=== PATIENT | female | born 1960 | race Caucasian/White ===

== ENCOUNTER → 2016-06-08 | Outpatient (CLI) | payer BC ==
[~2016-06-08] MED LIST: DOCU100C PO; FENO145T26 PO; IBUP-1050 PO; LEVO75TA5 PO; NXM/40 PO; PRM625 PO; SIMV40TA2 PO
--- NOTE | 2016-06-08 17:53 | DIAGNOSTIC IMAGING REPORT ---
CHEST 2 VIEWS ROUTINE HISTORY: Short of breath. COMPARISON: None. FINDINGS: No focal lung consolidations. The heart is normal in size. No pleural effusions. No pneumothorax. Punctate calcified granuloma within the right midlung zone. The lungs are mildly hyperexpanded with mild apical predominant emphysematous changes. IMPRESSION: No acute process within the chest. Mild emphysema. Electronically signed by: Efrain Pal M.D. 06/08/2016 5:51 PM
== END | disposition home or self-care (01) ==
LOC: C.RAD 17:23
PROVIDERS: ATTEND Internal Medicine
DX: Z87.891 Personal history of nicotine dependence (principal); R06.02 Shortness of breath

== ENCOUNTER → 2016-06-10 | Outpatient (CLI) | payer BC ==
[2016-06-10 14:37] LABS: BASO % 0.6 %; BASO ABS # 0.03 K/uL (0-0.2); COMPLETE YES; HEMATOCRIT 40.6 % (37-47); LYMPH % 36.6 %; LYMPH ABS # 1.96 K/uL (1.2-3.4); MEAN CELL VOLUME 89.8 fL (80-100); MEAN CORPUSCULAR HEMOGLOBIN 29.6 pg (25-34); MEAN PLATELET VOLUME 10.5 fL (7.4-10.4); MONO % 10.1 %; NEUT % 49.7 %; PLATELET COUNT 371 K/uL (130-400); RED BLOOD COUNT 4.52 M/uL (4.2-5.4); WHITE BLOOD COUNT 5.36 K/uL (4.8-10.8)
[2016-06-10 15:06] LABS: ALT/SGPT 18 U/L (12-78); AMYLASE 31 U/L (25-115); BLOOD UREA NITROGEN 13 mg/dl (7-18); BUN/CREATININE RATIO 19.5 (10-20); C-REACTIVE PROTEIN 1.23 mg/dl (0-0.29); CALCIUM 9.5 mg/dl (8.5-10.1); CARBON DIOXIDE 25 mmol/L (21-32); CHLORIDE 106 mmol/L (98-107); CREATININE 0.66 mg/dl (0.60-1.20); GLUCOSE 74 mg/dl (70-99); SODIUM 141 mmol/L (136-145)
[2016-06-10 15:09] LABS: ALB/GLOB RATIO 1.2 (0.9-2); ALKALINE PHOSPHATASE 44 U/L (45-117); AST/SGOT 16 U/L (15-37)
[2016-06-15 17:32] LABS: IGA SERUM 147 mg/dL (81-463); TIS TRANS IGA 1 U/mL (<4)
== END | disposition home or self-care (01) ==
LOC: C.LAB 13:38
PROVIDERS: ATTEND Internal Medicine
DX: R63.4 Abnormal weight loss (principal); R10.9 Unspecified abdominal pain

== ENCOUNTER → 2016-06-11 | Day surgery (SDC) | payer BC ==
[2016-06-10 13:34] VITALS: Ht 162.6 cm; Wt 54.1 kg
[~2016-06-11] VITALS: Ht 162.6 cm; Wt 54.1 kg
[~2016-06-11] MED LIST changes: +LIDOCAINE HCL 2% 2 ML VIAL (20MG/ML) ONE; +PROPOFOL IV EMULSION 10 MG/ML 20 ML VIAL IV ONE; +SODIUM CHLORIDE 0.9% 500ML 500 ML IV ONE
--- NOTE | 2016-06-11 12:31 | Endo History and Physical ---
History & Physical Date of Service: Jun 11, 2016. Chief Complaint: Weight loss, abnomal pain Referring Physician: Jose Roberto History of Present Illness 55 yo CF who presents for EGD and Colonoscopy secondary to weight loss and abdominal pain. Past Surgical History Hx Cardiac Surgery: No Hx Internal Defibrillator: No Hx Pacemaker: No Hx Abdominal Surgery: Yes (TUBAL,HYSTERECTOMY) Hx of Implantable Prosthesis: No Hx Post-Op Nausea and Vomiting: No Hx Cancer Surgery: No Hx Thoracic Surgery: No Hx Orthopedic: No Hx Urinary Tract Surgery: No Family History None Social History Smoking Status: Current Every Day Smoker Hx Substance Use: No Hx Alcohol Use: Yes (OCC SOCIAL) Allergies Coded Allergies: No Known Allergies (Unverified , 06/10/16) Current Medications Reported Home Medications Medications Dose Route/Sig Max Daily Dose Days Date Category Advil (Ibuprofen) 200 Mg Tab 400 Mg PO PRN 06/10/16 Reported Stool Softener (Docusate Sodium) 100 Mg Cap 100 Mg PO BID 06/10/16 Reported Zocor (Simvastatin) 40 Mg Tab 40 Mg PO QPM 06/10/16 Reported Tricor (Fenofibrate) 145 Mg Tab 145 Mg PO QAM 06/10/16 Reported Premarin (Estrogens Conjugated) 0.625 Mg Tab 0.625 Mg PO QAM 06/10/16 Reported Nexium (Esomeprazole Magnesium) 40 Mg Capcr 40 Mg PO QAM 06/10/16 Reported Levothyroxine Sodium 75 Mcg Tab 1 Tab PO QAM 90 06/10/16 Reported Vital Signs Weight (Kilograms): 54.09 Height (Feet): 5 Height (Inches): 4 Date Time Temp Pulse Resp B/P Pulse Ox O2 Delivery O2 Flow Rate FiO2 06/11/16 12:04 36.9 73 18 103/62 96 Room Air Physical Exam General Appearance: WD/WN, no apparent distress Respiratory/Chest: Auscultation: breath sounds normal Cardiovascular: Heart Auscultation: RRR Abdomen: Bowel Sounds: normal Inspection & Palpation: soft, non-distended, no tenderness, guarding & rebound Assessment and Plan Assessment: 55 yo CF who presents for EGD and Colonoscopy secondary to weight loss and abdominal pain. Plan: Proceed with EGD and colonoscopy.
--- NOTE | 2016-06-11 13:38 | Discharge Instructions ---
Endoscopy Patient Instructions Date / Procedure(s) Performed Jun 11, 2016. Colonoscopy, EGD Allergy Information Coded Allergies: No Known Allergies (Unverified , 06/10/16) Discharge Date / Findings Jun 11, 2016. EGD: Duodenitis with biopsies, Gastritis with biopsies Colonoscopy: Terminal ileitis s/p biopsies, Cecal polyp, Non-specific sigmoid colitis Medication Instructions OK to resume all medications today as prescribed Reported Home Medications Medications Dose Route/Sig Max Daily Dose Days Date Category Advil (Ibuprofen) 200 Mg Tab 400 Mg PO PRN 06/10/16 Reported Stool Softener (Docusate Sodium) 100 Mg Cap 100 Mg PO BID 06/10/16 Reported Zocor (Simvastatin) 40 Mg Tab 40 Mg PO QPM 06/10/16 Reported Tricor (Fenofibrate) 145 Mg Tab 145 Mg PO QAM 06/10/16 Reported Premarin (Estrogens Conjugated) 0.625 Mg Tab 0.625 Mg PO QAM 06/10/16 Reported Nexium (Esomeprazole Magnesium) 40 Mg Capcr 40 Mg PO QAM 06/10/16 Reported Levothyroxine Sodium 75 Mcg Tab 1 Tab PO QAM 90 06/10/16 Reported Provider Instructions Activity Restrictions - No exercising or heavy lifting for 24 hours. - Do not drink alcohol the day of the procedure. - Do not drive a car or operate machinery until the day after the procedure. - Do not make any important decisions or sign important papers in 24 hours after the procedure. Following Day: - Return to full activity which may include returning to work/school. Diet Start your diet with liquids and light foods (jello, soup, juice, toast). Then eat your usual diet if not nauseated. Treatment For Common After Affects For mild abdominal pain, bloating, or excessive gas: - Rest - Eat lightly - Lie on right side Follow-Up Information Follow-up with Jose Roberto as scheduled Anesthesia Information What You Should Know You have had a procedure that required some medicine to reduce anxiety and discomfort. This treatment is called moderate sedation. After receiving the treatment, you may be sleepy, but you will be able to breathe on your own. The effects of the treatment may last for several hours. Follow these instructions along with Activity/Diet recommendations noted above: * Do NOT do anything where dizziness or clumsiness would be dangerous. * Rest quietly at home today, then you can be up and about tomorrow. * Have a responsible person stay with you the rest of today. * You may have had an I.V. today. If so, you may take the dressing off later today. Recommendations Call your doctor if: * Trouble breathing * Continuous vomiting for more than 24 hours * Temperature above 101 degrees * Severe abdominal pain or bloating * Pain not relieved by pain medicine ordered * There is increased drainage or redness from any incision * A large amount of rectal bleeding greater than 2-3 tablespoons. (If you had a polyp/s removed or have hemorrhoids, a small amount of blood - from the rectum is to be expected.) * You have any unanswered questions or concerns. IN THE EVENT OF A SERIOUS EMERGENCY, GO TO THE NEAREST EMERGENCY ROOM Your discharge instructions were prepared by provider Russell Guzmán. Patient Instructions Signature Page Nabila Henson Patient (or Guardian) Signature/Date: I have read and understand the instructions given to me by my caregivers. Caregiver/RN/Doctor Signature/Date: The above-named patient and/or guardian has received patient instructions on this date. + Original Patient Signature Page (only) stays with chart. Please make copy for patient.
--- NOTE | 2016-06-11 13:47 | GI REPORT ---
Procedure Date: 06/11/2016 12:45 PM Procedure: Upper GI endoscopy Indications: Epigastric abdominal pain, Weight loss Medicines: Monitored Anesthesia Care Complications: No immediate complications. Estimated Blood Loss: Estimated blood loss: none. Procedure: Pre-Anesthesia Assessment: - Prior to the procedure, a History and Physical was performed, and patient medications and allergies were reviewed. The patient's tolerance of previous anesthesia was also reviewed. The risks and benefits of the procedure and the sedation options and risks were discussed with the patient. All questions were answered, and informed consent was obtained. Prior Anticoagulants: The patient has taken no previous anticoagulant or antiplatelet agents. ASA Grade Assessment: II - A patient with mild systemic disease. After reviewing the risks and benefits, the patient was deemed in satisfactory condition to undergo the procedure. After obtaining informed consent, the endoscope was passed under direct vision. Throughout the procedure, the patient's blood pressure, pulse, and oxygen saturations were monitored continuously. The scope was introduced through the mouth, and advanced to the second part of duodenum. The upper GI endoscopy was accomplished without difficulty. The patient tolerated the procedure well. Findings: The examined esophagus was normal. Localized mild inflammation characterized by erythema was found in the gastric antrum. Biopsies were taken with a cold forceps for histology. Localized moderate inflammation characterized by congestion (edema) was found in the duodenal bulb. Biopsies for histology were taken with a cold forceps for evaluation of celiac disease. Impression: - Normal esophagus. - Gastritis. Biopsied. - Duodenitis. Biopsied. Recommendation: - Resume previous diet. - Continue present medications. - Await pathology results. - Return to GI office as previously scheduled. Russell Guzmán, DO 06/11/2016 1:45:50 PM This report has been signed electronically. Note Initiated On: 06/11/2016 12:45 PM
--- NOTE | 2016-06-11 13:50 | GI REPORT ---
Procedure Date: 06/11/2016 12:50 PM Procedure: Colonoscopy Indications: Generalized abdominal pain, Weight loss Medicines: Monitored Anesthesia Care Complications: No immediate complications. Estimated Blood Loss: Estimated blood loss: none. Procedure: Pre-Anesthesia Assessment: - Prior to the procedure, a History and Physical was performed, and patient medications and allergies were reviewed. The patient's tolerance of previous anesthesia was also reviewed. The risks and benefits of the procedure and the sedation options and risks were discussed with the patient. All questions were answered, and informed consent was obtained. Prior Anticoagulants: The patient has taken no previous anticoagulant or antiplatelet agents. ASA Grade Assessment: II - A patient with mild systemic disease. After reviewing the risks and benefits, the patient was deemed in satisfactory condition to undergo the procedure. After I obtained informed consent, the scope was passed under direct vision. Throughout the procedure, the patient's blood pressure, pulse, and oxygen saturations were monitored continuously. The scope was introduced through the anus and advanced to the terminal ileum. The colonoscopy was performed without difficulty. The patient tolerated the procedure well. The quality of the bowel preparation was good. The terminal ileum, ileocecal valve, appendiceal orifice, and rectum were photographed. Findings: A localized area of mucosa in the terminal ileum was mildly congested. Biopsies were taken with a cold forceps for histology. A 5 mm polyp was found in the cecum. The polyp was sessile. The polyp was removed with a hot snare. Resection and retrieval were complete. Localized mild inflammation characterized by congestion (edema) and erythema was found in the sigmoid colon. Non-bleeding internal hemorrhoids were found during retroflexion. The hemorrhoids were small. Impression: - Congested mucosa in the terminal ileum. Biopsied. - One 5 mm polyp in the cecum, removed with a hot snare. Resected and retrieved. - Localized mild inflammation was found in the sigmoid colon secondary to colitis. - Non-bleeding internal hemorrhoids. Recommendation: - Resume previous diet. - Continue present medications. - Repeat colonoscopy for surveillance based on pathology results. - Return to GI office as previously scheduled. Russell Guzmán DO 06/11/2016 1:49:05 PM This report has been signed electronically. Note Initiated On: 06/11/2016 12:50 PM
[2016-06-11 14:02] VITALS: BP 123/75; PULSE 72; O2SAT 95
--- NOTE | 2016-06-11 14:26 | Anesthesiology Progress Note ---
Anesthesia Post Op Note Date & Time Jun 11, 2016 at 14:25 Vital Signs Vital Signs Past 12 Hours Date Time Temp Pulse Resp B/P Pulse Ox O2 Delivery O2 Flow Rate FiO2 06/11/16 14:02 72 16 123/75 95 Room Air 06/11/16 13:47 77 16 124/78 100 Room Air 06/11/16 13:32 84 16 133/75 99 Room Air 06/11/16 12:04 36.9 73 18 103/62 96 Room Air Notes Mental Status: alert / awake / arousable, participated in evaluation Pt Amnestic to Procedure: Yes Nausea / Vomiting: adequately controlled Pain: adequately controlled Airway Patency, RR, SpO2: stable & adequate BP & HR: stable & adequate Hydration State: stable & adequate Anesthetic Complications: no major complications apparent
== END | disposition home or self-care (01) ==
LOC: C.GI 11:40
PROVIDERS: ATTEND Internal Medicine
DX: K29.50 Unspecified chronic gastritis without bleeding (principal); R63.4 Abnormal weight loss; D12.0 Benign neoplasm of cecum; K64.8 Other hemorrhoids; K29.80 Duodenitis without bleeding; Z98.51 Tubal ligation status; Z90.710 Acquired absence of both cervix and uterus; F17.200 Nicotine dependence, unspecified, uncomplicated; Z68.21 Body mass index [BMI] 21.0-21.9, adult